=== PATIENT | female | born 1935 | race Caucasian/White ===

== ENCOUNTER 2016-08-09 19:25 | Emergency (ER) | payer MEDICARE, OTHER ==
[~2016-08-09 19:25] MED LIST: ALBUTEROL17 GM; AMLODIPINE BESYL5 MG PO; ASPIRIN81 M1 PO; B6100 MG PO; CALCIUM + D 6001 TA1 PO; CIPRO PO; FISH OIL 1,2001 EACH PO; HYDROCHLOROTH12.5 MG PO; MAGNESIUM PO; ONE DAILY MULTI1 TA3 PO; OSTEO BIFLEX PO; PANTOPRAZOLE SO40 MG; POTASSIUM99 M1 PO; PRILOSEC20 M1 PO; PROTONIX PO; VITAMIN B 12 PO; VITAMIN B-12500 MCG PO; VITAMIN C500 M1 PO; ZESTORETIC 10/11 TAB PO; ZOCOR PO
[2016-08-09] MEDS ORDERED: COZAAR100 MG PO (19:36)
[2016-08-09 20:24] LABS: BUN/CREATININE RATIO 19.23; CALCIUM SERUM 9.1 mg/dL (8.4-10.2); CREATININE SERUM 1.3 mg/dL (0.6-1.4); POTASSIUM 3.1 mmol/L (3.5-5.1)
== END 2016-08-09 21:18 | disposition home or self-care (01) ==
LOC: SED 19:25
PROVIDERS: Emergency Medicine
DX: E87.6 Hypokalemia (principal); E78.5 Hyperlipidemia, unspecified; J44.9 Chronic obstructive pulmonary disease, unspecified; I10 Essential (primary) hypertension; Z90.49 Acquired absence of other specified parts of digestive tract; Z79.82 Long term (current) use of aspirin; Z79.899 Other long term (current) drug therapy
CPT/HCPCS: 36415; 80048; 99283